=== PATIENT | female | born 1960 | race Caucasian/White ===

== ENCOUNTER 2020-01-16 20:34 | Inpatient (IN) | payer MEDICAID ==
[~2020-01-16] VITALS: Ht 157.5 cm; Wt 38.6 kg
--- NOTE | ~2020-01-16 | CON ---
[address] [address] CONSULTATION Name: YENNY ABDALLA Room: [address] IN M.R.#: [id number] Admission: 01/16/20 Attend Phys: Moshe Mary Discharge: Date of : 62 Report #: [id number] THIS REPORT FOR: //name// cc: FABIOLA White family physician/PCP FABIOLA - Cindy family physician/PCP ~ THIS REPORT FOR: //name// CC: [facility] physician/PCP Shruti Benton DATE OF SERVICE: 01/22/2020 CHIEF COMPLAINT: Followup of bone and wound debridement from right distal fifth toe. Bone culture grew Acinetobacter baumannii, final report still pending. She is on vancomycin and ceftriaxone with good tolerance. Relates pain to the toe, no active bleeding. LABORATORY DATA: WBC 10.8, RBC 2.71, hemoglobin 10.9, hematocrit 31.1, platelets 351. BUN 10, creatinine 0.8, glucose 125. PHYSICAL EXAMINATION: Wound to the right distal toe, has red healthy tissue with some exposed bone at the debridement site. The toe is mildly inflamed, but less than prior to debridement. There is no pallor/cyanosis or signs of gangrene. IMPRESSION: Osteomyelitis, right fifth toe, status post debridement. Type 2 diabetes mellitus with peripheral arterial disease. PLAN: The wound was cleansed and dried and dressed with Xeroform and gauze. The patient instructed to decrease smoking and minimize ambulation. She can either follow up with me in my office next week or go to [facility] Podiatry clinic for followup, as she does not have health care insurance. By: 1703 [id number] Tan DPM /james
--- NOTE | ~2020-01-16 | CON ---
[address] [address] CONSULTATION Name: YENNY ABDALLA Room: [address] IN M.R.#: [id number] Admission: 01/16/20 Attend Phys: Moshe Mary Discharge: Date of : 62 Report #: [id number] THIS REPORT FOR: //name// cc: FABIOLA White family physician/PCP FABIOLA White family physician/PCP ~ THIS REPORT FOR: //name// CC: FABIOLA physician/PCP Shruti Benton DATE OF SERVICE: 01/20/2020 CHIEF COMPLAINT: Podiatric followup regarding ulceration to the right distal fifth toe with likely osteomyelitis of the desiccated distal phalange. She has PAD, evaluated by Vascular service, which did not indicate any further vascular testing or intervention. The patient's pain is better controlled. Blood cultures were negative x 2. She is on parenteral vancomycin and ceftriaxone with good tolerance. LABORATORY DATA: WBC 7.1, RBC 2.39, hemoglobin 9.7, hematocrit 27.5, platelets 352. BUN is 6, creatinine is 0.6, glucose is 128. Albumin is 2.2. PHYSICAL EXAMINATION: Temperature is 99.8, pulse 108, respiration 17, blood pressure 134/69. There is an ulceration of the distal aspect of the right 5th toe with some dry desiccated bone in the wound bed. The inflammations is nearly resolved with no roel cellulitis at this point. The toes tender to the touch, no pallor or cyanosis. There is no eschar or gangrene. No other lesions noted. IMPRESSION: Ulceration, right 5th toe with osteomyelitis, peripheral artery disease. An informed consent was obtained, signed, and I anesthetized the right fifth toe with 3 mL of 0.5% Marcaine plain. Once adequate anesthesia was achieved, I prepped and draped the area with Betadine and removed the exposed bones from the wound bed. A portion of bone was sent for aerobic and anaerobic culture and the remaining bone for pathology. The bone was bleeding at the resection site, but stopped with pressure. The tissue was viable and bleeding around the bone. The wound was thoroughly cleansed with wound cleanser and dried. It was dressed with Aquacel Ag and rolled gauze. I will obtain a surgical shoe for the patient for offloading. I do not anticipate further surgical debridement at this point. I will follow her as an outpatient in my office or she can follow up at the Podiatry clinic at [facility] [place]. By: 1559 1953Dabdias Tan DPM /james
[~2020-01-16 20:34] MED LIST: ASPIR 8181 MG PO; GAS RELIEF80 MG PO; NICARDIPINE HCL20 MG PO; NORCO 5-325 TA1 EACH PO; TYLENOL325 MG PO; ZANTAC 150MG T150 MG PO
[2020-01-16 20:46] VITALS: BP 140/56
[2020-01-16 22:07] LABS: ABSOLUTE LYMPHOCYTES 3.9 thou/uL (0.8-5.3); ABSOLUTE NEUTROPHILS 4.9 thou/uL (1.6-8.1); BASOPHILS 0.2 %; EOSINOPHILS 8.9 %; HEMATOCRIT 35.7 % (37.0-47.0); HEMOGLOBIN 12.6 gm/dL (12.0-15.0); LYMPHOCYTES 36.2 %; MCH 40.3 pg (26.0-34.0); MCHC 35.5 g/dL (28.0-37.0); MCV 113.8 fL (80.0-100.0); MONOCYTES 9.4 %; MPV 7.4 fl. (7.2-11.1); NUCLEATED RBCS 0 /100WBC; PLATELET COUNT* 536 thou/uL (150-400); POLYS 45.3 %; RBC 3.13 mil/uL (4.20-5.00); RDW-CV 19.9 % (10.5-14.5); WBC 10.8 thou/uL (4.0-11.0)
[2020-01-16 22:08] LABS: BE -7.3 mmol/L (-2 to +3); PCO2 25.3 mmHg (35.0-45.0); PO2 95.2 mmHg (75.0-100.0); pH 7.411 (7.340-7.450)
[2020-01-16 22:17] LABS: CALCIUM 8.9 mg/dL (8.5-10.1); CREATININE 0.9 mg/dL (0.6-1.3); POTASSIUM 3.2 mmol/L (3.5-5.1)
[2020-01-16 22:28] LABS: ALBUMIN 3.2 g/dL (3.4-5.0); MAGNESIUM 2.3 mg/dL (1.8-2.4); TOTAL BILIRUBIN 0.5 mg/dL (<0.1-1.0); TOTAL PROTEIN 7.1 g/dL (6.4-8.2)
[2020-01-16 23:44] LABS: INR 1.2; PROTIME 12.3 Seconds (9.20-11.50)
[2020-01-16 23:47] LABS: URINE BILIRUBIN NEGATIVE (Negative); URINE BLOOD NEGATIVE (Negative); URINE CLARITY CLEAR; URINE COLOR STRAW; URINE GLUCOSE-RANDOM NEGATIVE (Negative); URINE KETONES NEGATIVE (Negative); URINE LEUKOCYTES-REFLEX NEGATIVE (Negative); URINE NITRITE-REFLEX NEGATIVE (Negative); URINE PROTEIN NEGATIVE (Negative); URINE SPECIFIC GRAVITY <= 1.005 (1.005-1.030); URINE UROBILINOGEN 0.2 E.U./dl (0.2-1.0)
[2020-01-17] VITALS: BP 135/70
[2020-01-17 00:05] VITALS: BP 135/62
[2020-01-17 08:33] VITALS: BP 140/65
--- NOTE | 2020-01-17 13:02 | EKG ---
[place] [address] ELECTROCARDIOGRAM REPORT Name: YENNY ABDALLA Room: [address] ADM IN .R.#: [id number] Admission: 01/16/20 Attend Phys: Shruti Benton Discharge: Date of : 62 Date of Service: 01/16/202210 Report #: [id number] THIS REPORT FOR: //name// [facility] ED Test Date: 2020-01-16 Test Time: 22:11:10 Pat Name: YENNY ABDALLA Department: Room: [facility] Gender: F Rn Teacher: MAXINE : 1960 Requested By: Lyudmila Dunham Order Number: [id number] MD: Arnold Carrion Measurements Intervals Energy Rate: 91 P: 84 MS: 125 QRS: 65 QRSD: 87 T: 66 QT: 365 QTc: 450 Interpretive Statements Sinus rhythm Baseline wander in lead(s) II,III,aVF,V3 No previous ECG available for comparison Electronically Signed On 01-17-2020 13:01:58 CDT by Arnold Carrion [email or web address] <ELECTRONICALLY SIGNED> By: Arnold Carrion MD, FACC 01/17/20 1301 10 10 Arnold Carrion MD, [facility] /EPI
[2020-01-17 20:04] VITALS: BP 146/64
[2020-01-18 05:06] LABS: GLYCOHEMOGLOBIN (HGB A1C) 5.1 % (4.8-5.6)
[2020-01-18 07:50] VITALS: BP 159/68
[2020-01-18 16:00] VITALS: BP 138/60
[2020-01-18 19:48] VITALS: BP 123/62; BP 155/77
[2020-01-19 03:53] LABS: HEMATOCRIT 28.8 % (37.0-47.0); MCH 39.8 pg (26.0-34.0); MCHC 34.5 g/dL (28.0-37.0); MCV 115.5 fL (80.0-100.0); MPV 7.4 fl. (7.2-11.1); RBC 2.49 mil/uL (4.20-5.00); RDW-CV 19.4 % (10.5-14.5); WBC 6.9 thou/uL (4.0-11.0)
[2020-01-19 04:02] LABS: HEMOGLOBIN 9.9 gm/dL (12.0-15.0)
[2020-01-19 04:18] LABS: ALBUMIN 2.2 g/dL (3.4-5.0); CALCIUM 7.7 mg/dL (8.5-10.1); CREATININE 0.7 mg/dL (0.6-1.3); MAGNESIUM 1.7 mg/dL (1.8-2.4); POTASSIUM 3.9 mmol/L (3.5-5.1); TOTAL BILIRUBIN 0.3 mg/dL (<0.1-1.0); TOTAL PROTEIN 5.3 g/dL (6.4-8.2)
[2020-01-19 08:05] VITALS: BP 153/68
--- NOTE | 2020-01-19 13:27 | 2DMMODE ---
[place] [address] 2 D/M-MODE ECHOCARDIOGRAM Name: YENNY ABDALLA Room: [address] IN Mary.#: [id number] Admission: 01/16/20 Attend Phys: Shruti Benton Discharge: Date of : 62 Date of Service: 01/19/20 1327 Report #: [id number] THIS REPORT FOR: cc: FAM - No family physician/PCP FAM - No family physician/PCP Arnold Carrion MD [facility] ~ APPROVED REPORT Study performed: 01/19/2020 10:02:07 EXAM: Comprehensive 2D, Doppler, and color-flow Echocardiogram Patient Location: In-Patient Room #: [facility] BSA: 1.30 HR: 93 bpm BP: 123/62 mmHg Other Information Study Quality: Good Indications Embolic source ? 2D Dimensions IVSd: 8.63 (7-11mm) LVOT Diam: 18.34 (18-24mm) LVDd: 38.29 mm PWd: 8.14 (7-11mm) Ascending Ao: 25.92 (22-36mm) LVDs: 23.62 (25-40mm) Aortic Root: 22.02 mm Volumes Left Atrial Volume (Systole) LA ESV Index: 9.20 mL/m2 Aortic Valve AoV Peak Jerry.: 1.11 m/s AO Peak Gr.: 4.95 mmHg LVOT Max P.79 mmHg AO Mean Gr.: 2.40 mmHg LVOT Mean P.75 mmHg LVOT Max V: 0.97 m/s AO V2 VTI: 22.15 cm LVOT Mean V: 0.60 m/s VAN (VTI): 2.42 cm2 LVOT V1 VTI: 20.30 [place] [address] 2 D/M-MODE ECHOCARDIOGRAM Name: YENNY ABDALLA Room: [address] IN .R.#: [id number] Admission: 01/16/20 Attend Phys: Shruti Benton Discharge: Date of : 62 Date of Service: 01/19/20 1327 Report #: [id number] E/A Ratio: 1.15 MV Decel. Time: 90.92 ms MV E Max Jerry.: 0.96 m/s MV PHT: 26.37 ms MVA (PHT): 8.34 cm2 TDI E/Lateral E': 10.67 E/Medial E': 9.60 Medial E' Jerry.: 0.10 m/s Lateral E' Jerry.: 0.09 m/s Pulmonary Valve PV Peak Jerry.: 1.18 m/s PV Peak Gr.: 5.59 mmHg Tricuspid Valve RAP Estimate: 5.00 mmHg TR Peak Gr.: 25.60 mmHg RVSP: 30.60 mmHg PA Pressure: 30.60 mmHg Left Ventricle The left ventricle is normal size. There is normal LV segmental wall motion. There is normal left ventricular wall thickness. Left ventricular systolic function is normal. LVEF is 60-65%. The left ventricular diastolic function is normal. Right Ventricle The right ventricle is normal size. The right ventricular systolic function is normal. Atria The left atrium size is normal. The right atrium size is normal. Aortic Valve The aortic valve is normal in structure. No aortic regurgitation is present. There is no aortic valvular stenosis. Mitral Valve The mitral valve is normal in structure. Mild mitral regurgitation. No evidence of mitral valve stenosis. Tricuspid Valve The tricuspid valve is normal in structure. Mild tricuspid regurgitation[place] [address] 2 D/M-MODE ECHOCARDIOGRAM Name: YENNY ABDALLA Room: [address] IN [facility]#: [id number] Admission: 01/16/20 Attend Phys: Shruti Benton Discharge: Date of : 62 Date of Service: 01/19/20 1327 Report #: [id number] The pulmonary valve is normal in structure. There is no pulmonic valvular regurgitation. Great Vessels The aortic root is normal in size. IVC is normal in size and collapses >50% with inspiration. Pericardium There is no pericardial effusion. <Conclusion> The left ventricle is normal size. There is normal left ventricular wall thickness. Left ventricular systolic function is normal. LVEF is 60-65%. The left ventricular diastolic function is normal. Mild mitral regurgitation. Mild tricuspid regurgitation. IVC is normal in size and collapses >50% with inspiration. <ELECTRONICALLY SIGNED> By: Arnold Carrion MD, FACC 01/19/20 1327 26 132 Arnold Carrion MD, FACC /INF
[2020-01-19 16:00] VITALS: BP 177/77
[2020-01-19 19:51] VITALS: BP 134/69
[2020-01-20 04:55] LABS: ALBUMIN 2.2 g/dL (3.4-5.0); CALCIUM 8.2 mg/dL (8.5-10.1); CREATININE 0.6 mg/dL (0.6-1.3); MAGNESIUM 1.8 mg/dL (1.8-2.4); POTASSIUM 3.8 mmol/L (3.5-5.1); TOTAL BILIRUBIN 0.3 mg/dL (<0.1-1.0); TOTAL PROTEIN 5.3 g/dL (6.4-8.2)
[2020-01-20 05:46] LABS: HEMATOCRIT 27.5 % (37.0-47.0); HEMOGLOBIN 9.7 gm/dL (12.0-15.0); MCH 40.4 pg (26.0-34.0); MCHC 35.1 g/dL (28.0-37.0); MPV 7.6 fl. (7.2-11.1); RBC 2.39 mil/uL (4.20-5.00); RDW-CV 19.9 % (10.5-14.5); WBC 7.1 thou/uL (4.0-11.0)
[2020-01-20 08:30] VITALS: BP 151/61
--- NOTE | 2020-01-20 12:26 | CON ---
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 HISTORY OF PRESENT ILLNESS: The patient is a 59-year-old female who presents with increased swelling, erythema, and pain to the right fifth toe with open lesion. She has noticed increased pain and swelling to the area over the last several months, which has recently worsened. She has a longstanding history of tobacco use, and smokes roughly 1-2 packs per day. She denies fevers, chills, nausea, or malaise. She is unable to wear a shoe or sock, as any pressure to the toe is extremely painful. She denies any bleeding or drainage from the distal fifth toe wound. She denies type 2 diabetes. She does relate Raynaud's disease/phenomenon. Foot radiographs were negative for osteomyelitis of the fifth toe. Arterial duplex Doppler ultrasound was performed today with pending report. She is currently on parenteral vancomycin and ceftriaxone. She has not obtained medical treatment for the toe, as she does not have medical health insurance. LABORATORY DATA: WBC 10.8, RBC 3.13, hemoglobin 12.6, hematocrit 35.7, platelets 536. BUN 11, creatinine 0.9, glucose 105. Albumin 3.2. PHYSICAL EXAMINATION: VITAL SIGNS: Temperature 98.6, pulse 95, respirations 19, blood pressure 140/65. EXTREMITIES: The right fifth toe has a bluish discoloration and is exquisitely painful to palpation due to ischemia. There is a dry open ulcer to the distal aspect that measures 0.6 x 0.6 x 0.2 cm. There is brown desiccated bone to the wound bed with no drainage or bleeding. The patient has faintly palpable dorsalis pedis pulse, cannot palpate the posterior tibial. She has skin atrophy with dependent rubor and no pedal hair growth. Toenails are slightly dystrophic. She has full strength to all tendons crossing the foot and ankle. IMPRESSION: Peripheral arterial disease with dry osteomyelitis, right fifth toe. PLAN: The patient will require surgical amputation of the right fifth toe or autoamputation depending on the status of her arterial supply. I consulted Vascular Surgery for further workup. I do not recommend surgical intervention at this time until her blood flow is examined, and [place] [address] CONSULTATION Name: YENNY ABDALLA Room: [address] IN [facility]#: [id number] Admission: 01/16/20 Attend Phys: Moshe Mary Discharge: Date of : 62 Report #: [id number] endovascular intervention. I will follow up with her daily while she is here. In the interim, keep the toe dry, clean, open to air. May paint with Betadine. No dressing required due to the pain associated with removing the bandage. <ELECTRONICALLY SIGNED> By: Darrion Tan DPM 01/20/20 1226 1412 1605Darrion Tan DPM /james
[2020-01-20 15:07] VITALS: BP 182/79
[2020-01-20 19:50] VITALS: BP 154/70
[2020-01-21] VITALS (12 sets, daily range): BP systolic 138–168; BP diastolic 71–87
[2020-01-21 04:10] LABS: ALBUMIN 2.4 g/dL (3.4-5.0); CREATININE 0.7 mg/dL (0.6-1.3); PHOSPHORUS* 2.9 mg/dL (2.5-4.9)
[2020-01-21 04:13] LABS: POTASSIUM 2.9 mmol/L (3.5-5.1)
[2020-01-22] VITALS: BP 159/75
[2020-01-22 04:00] VITALS: BP 148/67
[2020-01-22 04:05] LABS: HEMATOCRIT 31.1 % (37.0-47.0); HEMOGLOBIN 10.9 gm/dL (12.0-15.0); MCH 40.1 pg (26.0-34.0); MCHC 34.9 g/dL (28.0-37.0); MCV 114.7 fL (80.0-100.0); MPV 7.3 fl. (7.2-11.1); RBC 2.71 mil/uL (4.20-5.00); RDW-CV 19.7 % (10.5-14.5); WBC 10.8 thou/uL (4.0-11.0)
[2020-01-22 04:19] LABS: ALBUMIN 2.5 g/dL (3.4-5.0); CALCIUM 8.8 mg/dL (8.5-10.1); CREATININE 0.8 mg/dL (0.6-1.3); POTASSIUM 3.9 mmol/L (3.5-5.1); TOTAL BILIRUBIN 0.4 mg/dL (<0.1-1.0); TOTAL PROTEIN 5.9 g/dL (6.4-8.2)
[2020-01-22 07:37] VITALS: BP 169/73
[2020-01-22 15:55] VITALS: BP 169/73
[2020-01-22 16:00] VITALS: BP 154/61
[2020-01-22 19:15] VITALS: BP 135/69
[2020-01-23 04:36] LABS: HEMATOCRIT 30.2 % (37.0-47.0); HEMOGLOBIN 10.1 gm/dL (12.0-15.0); MCH 38.9 pg (26.0-34.0); MCHC 33.6 g/dL (28.0-37.0); MCV 115.7 fL (80.0-100.0); MPV 7.5 fl. (7.2-11.1); RBC 2.61 mil/uL (4.20-5.00); RDW-CV 19.2 % (10.5-14.5); WBC 12.9 thou/uL (4.0-11.0)
[2020-01-23 05:06] LABS: ALBUMIN 2.7 g/dL (3.4-5.0); CALCIUM 8.8 mg/dL (8.5-10.1); CREATININE 0.8 mg/dL (0.6-1.3); MAGNESIUM 2.1 mg/dL (1.8-2.4); POTASSIUM 4.3 mmol/L (3.5-5.1); TOTAL BILIRUBIN 0.5 mg/dL (<0.1-1.0); TOTAL PROTEIN 6.2 g/dL (6.4-8.2)
[2020-01-23 08:15] VITALS: BP 106/64
[2020-01-23] MEDS ORDERED: PLAVIX 75 MG TA75 M1 PO (13:01)
[2020-01-23] MEDS ORDERED: ADULT LOW DOSE81 MG PO (13:02)
[2020-01-23] MEDS ORDERED: LORCET 5-325 M1 EACH PO (13:05)
[2020-01-23] MEDS ORDERED: LEVOFLOXACIN750 MG PO (13:06)
--- NOTE | 2020-01-25 16:06 | PATH ---
[facility] [address] [place] [address] PATHOLOGY RPT PROCEDURE Name: MENSAHDIANAANNABELLA S Room: [address] IN M.R.#: [id number] Admission: 01/16/20 Date of : 62 Discharge: 01/23/20 Report #: [id number] Path Case #: [id number] [facility] Accession Number: [id number] . 01 Material submitted: . toe - RIGHT 5TH TOE, DISTAL PHALANX. Modifiers: right, fifth, distal . 01 Clinical history: . OSTEOMYELITIS . 02 Diagnosis: Right fifth toe bone (distal phalanx): - Benign and viable cancellous bone with osteomyelitis. (THOMAS:yenifer; 01/25/2020) QMS 01/25/2020 1449 Local . 02 Electronically signed: . Boris Mcarthur MD, Pathologist NPI- [id number] . 01 Gross description: . The specimen is received in saline, labeled "Annabella Mensah, right fifth toe bone (distal phalanx)". Received is a fragment of pink-bass bone measuring 0.4 x 0.2 x 0.1 cm in greatest dimensions. The specimen is filtered and entirely submitted in cassette A1, following light decalcification. (CAA; 01/22/2020) QA/QA 01/22/2020 1142 Local . 02 Pathologist provided ICD-10: M86.171 . 02 CPT . 157681, [id number] Specimen Comment: A courtesy copy of this report has been sent to [phone] Specimen Comment: [phone] Specimen Comment: Report sent to / DR SORIANO Performed at: [address], [place], [place] [id number] MD Rory Avila MD Phone: [phone] Performed at: 02 [facility] [address], [place], [place] [id number] MD Boris Mcarthur MD Phone: [phone]
== END 2020-01-23 14:45 | disposition left against medical advice (07) | DRG 853 ==
LOC: M.ERS 20:34 → M.3W 23:21 → M.TBA-ER 23:21 → M.ERS 01-17 00:01 → M.3W 01-17 00:27
PROVIDERS: Family Medicine; Personal Emergency Response Attendant; ADMIT Internal Medicine; ATTEND Internal Medicine
PROC: 0QBQ0ZZ Excision of Right Toe Phalanx, Open Approach (ICD-10-PCS; principal; 2020-01-20)
PROC: B41D1ZZ Fluoroscopy of Aorta and Bilateral Lower Extremity Arteries using Low Osmolar Contrast (ICD-10-PCS; 2020-01-21)
PROC: 04CT3ZZ Extirpation of Matter from Right Peroneal Artery, Percutaneous Approach (ICD-10-PCS; 2020-01-21)
PROC: 047D3DZ Dilation of Left Common Iliac Artery with Intraluminal Device, Percutaneous Approach (ICD-10-PCS; 2020-01-21)
PROC: 047R3ZZ Dilation of Right Posterior Tibial Artery, Percutaneous Approach (ICD-10-PCS; 2020-01-21)
PROC: 047T3ZZ Dilation of Right Peroneal Artery, Percutaneous Approach (ICD-10-PCS; 2020-01-21)
PROC: 047C3ZZ Dilation of Right Common Iliac Artery, Percutaneous Approach (ICD-10-PCS; 2020-01-21)
DX: A41.9 Sepsis, unspecified organism (principal); E43 Unspecified severe protein-calorie malnutrition; Z68.1 Body mass index [BMI] 19.9 or less, adult; M86.8X7 Other osteomyelitis, ankle and foot; I75.023 Atheroembolism of bilateral lower extremities; I10 Essential (primary) hypertension; E87.6 Hypokalemia; J44.9 Chronic obstructive pulmonary disease, unspecified; K76.0 Fatty (change of) liver, not elsewhere classified; N28.1 Cyst of kidney, acquired; F17.210 Nicotine dependence, cigarettes, uncomplicated; D53.9 Nutritional anemia, unspecified; I70.202 Unspecified atherosclerosis of native arteries of extremities, left leg; K21.9 Gastro-esophageal reflux disease without esophagitis; M19.90 Unspecified osteoarthritis, unspecified site; Z20.828 Contact with and (suspected) exposure to other viral communicable diseases; Z91.14 Patient's other noncompliance with medication regimen; Z79.82 Long term (current) use of aspirin; Z79.899 Other long term (current) drug therapy; Z88.0 Allergy status to penicillin; Z88.8 Allergy status to other drugs, medicaments and biological substances